=== PATIENT | female | born 1970 | race Caucasian/White ===

== ENCOUNTER → 2020-04-18 | Outpatient (CLI) | payer OTHER | LOC: WOUNDCARE 13:11 | PROVIDERS: ATTEND Surgery | DX: I87.332 Chronic venous hypertension (idiopathic) with ulcer and inflammation of left lower extremity (principal); E11.622 Type 2 diabetes mellitus with other skin ulcer; L95.8 Other vasculitis limited to the skin; I89.0 Lymphedema, not elsewhere classified; I50.9 Heart failure, unspecified; L97.322 Non-pressure chronic ulcer of left ankle with fat layer exposed; L97.222 Non-pressure chronic ulcer of left calf with fat layer exposed | CPT/HCPCS: 99202 ==

== ENCOUNTER → 2020-04-25 | Outpatient (CLI) | payer OTHER | LOC: WOUNDCARE 09:20 | PROVIDERS: ATTEND Surgery | DX: L97.222 Non-pressure chronic ulcer of left calf with fat layer exposed (principal); L97.322 Non-pressure chronic ulcer of left ankle with fat layer exposed; I87.332 Chronic venous hypertension (idiopathic) with ulcer and inflammation of left lower extremity; E11.622 Type 2 diabetes mellitus with other skin ulcer; L95.8 Other vasculitis limited to the skin; I89.0 Lymphedema, not elsewhere classified; I50.9 Heart failure, unspecified; E11.52 Type 2 diabetes mellitus with diabetic peripheral angiopathy with gangrene | CPT/HCPCS: 99213 ==

== ENCOUNTER → 2020-05-02 | Outpatient (CLI) | payer OTHER | LOC: WOUNDCARE 13:11 | PROVIDERS: ATTEND Surgery | DX: I87.332 Chronic venous hypertension (idiopathic) with ulcer and inflammation of left lower extremity (principal); E11.622 Type 2 diabetes mellitus with other skin ulcer; L95.8 Other vasculitis limited to the skin; I89.0 Lymphedema, not elsewhere classified; I50.9 Heart failure, unspecified; L97.222 Non-pressure chronic ulcer of left calf with fat layer exposed; L97.212 Non-pressure chronic ulcer of right calf with fat layer exposed; I96 Gangrene, not elsewhere classified | CPT/HCPCS: 11042; G0463 ==

== ENCOUNTER → 2020-05-09 | Outpatient (CLI) | payer OTHER | LOC: WOUNDCARE 08:18 | PROVIDERS: ATTEND Surgery | DX: I87.332 Chronic venous hypertension (idiopathic) with ulcer and inflammation of left lower extremity (principal); L97.212 Non-pressure chronic ulcer of right calf with fat layer exposed; L97.222 Non-pressure chronic ulcer of left calf with fat layer exposed; E11.622 Type 2 diabetes mellitus with other skin ulcer; I89.0 Lymphedema, not elsewhere classified; I96 Gangrene, not elsewhere classified | CPT/HCPCS: 99213 ==

== ENCOUNTER → 2020-05-25 | Outpatient (CLI) | payer OTHER | LOC: WOUNDCARE 08:12 | PROVIDERS: ATTEND Orthopaedic Surgery Hand Surgery | DX: I87.332 Chronic venous hypertension (idiopathic) with ulcer and inflammation of left lower extremity (principal); I96 Gangrene, not elsewhere classified; I89.0 Lymphedema, not elsewhere classified; E11.622 Type 2 diabetes mellitus with other skin ulcer; L97.212 Non-pressure chronic ulcer of right calf with fat layer exposed; L97.222 Non-pressure chronic ulcer of left calf with fat layer exposed; M79.662 Pain in left lower leg | CPT/HCPCS: 99213 ==

== ENCOUNTER → 2020-05-30 | Outpatient (CLI) | payer OTHER | LOC: WOUNDCARE 09:49 | PROVIDERS: ATTEND Surgery | DX: I87.332 Chronic venous hypertension (idiopathic) with ulcer and inflammation of left lower extremity (principal); I96 Gangrene, not elsewhere classified; L97.212 Non-pressure chronic ulcer of right calf with fat layer exposed; L97.222 Non-pressure chronic ulcer of left calf with fat layer exposed; E11.622 Type 2 diabetes mellitus with other skin ulcer; I89.0 Lymphedema, not elsewhere classified; M79.662 Pain in left lower leg | CPT/HCPCS: 11042; G0463 ==

== ENCOUNTER → 2020-06-06 | Outpatient (CLI) | payer OTHER | LOC: WOUNDCARE 09:41 | PROVIDERS: ATTEND Orthopaedic Surgery Hand Surgery | DX: I87.332 Chronic venous hypertension (idiopathic) with ulcer and inflammation of left lower extremity (principal); I96 Gangrene, not elsewhere classified; I89.0 Lymphedema, not elsewhere classified; L97.222 Non-pressure chronic ulcer of left calf with fat layer exposed; L97.322 Non-pressure chronic ulcer of left ankle with fat layer exposed; E11.622 Type 2 diabetes mellitus with other skin ulcer; M79.661 Pain in right lower leg | CPT/HCPCS: 11042; G0463 ==

== ENCOUNTER → 2020-06-13 | Outpatient (CLI) | payer OTHER | LOC: WOUNDCARE 09:39 | PROVIDERS: ATTEND Surgery | DX: E11.52 Type 2 diabetes mellitus with diabetic peripheral angiopathy with gangrene (principal); E11.622 Type 2 diabetes mellitus with other skin ulcer; I96 Gangrene, not elsewhere classified; I87.332 Chronic venous hypertension (idiopathic) with ulcer and inflammation of left lower extremity; L97.222 Non-pressure chronic ulcer of left calf with fat layer exposed; L97.322 Non-pressure chronic ulcer of left ankle with fat layer exposed | CPT/HCPCS: 11042; G0463 ==

== ENCOUNTER → 2020-06-20 | Outpatient (CLI) | payer OTHER | LOC: WOUNDCARE 09:47 | PROVIDERS: ATTEND Surgery | DX: I87.332 Chronic venous hypertension (idiopathic) with ulcer and inflammation of left lower extremity (principal); I96 Gangrene, not elsewhere classified; L97.222 Non-pressure chronic ulcer of left calf with fat layer exposed; L97.322 Non-pressure chronic ulcer of left ankle with fat layer exposed; E11.622 Type 2 diabetes mellitus with other skin ulcer | CPT/HCPCS: 11042; G0463 ==

== ENCOUNTER → 2020-06-27 | Outpatient (CLI) | payer OTHER | LOC: WOUNDCARE 09:32 | PROVIDERS: ATTEND Surgery | DX: I87.332 Chronic venous hypertension (idiopathic) with ulcer and inflammation of left lower extremity (principal); L97.222 Non-pressure chronic ulcer of left calf with fat layer exposed; L97.322 Non-pressure chronic ulcer of left ankle with fat layer exposed; E11.622 Type 2 diabetes mellitus with other skin ulcer; I96 Gangrene, not elsewhere classified | CPT/HCPCS: 11042; G0463 ==

== ENCOUNTER → 2020-07-04 | Outpatient (CLI) | payer OTHER | LOC: WOUNDCARE 09:40 | PROVIDERS: ATTEND Surgery | DX: I87.332 Chronic venous hypertension (idiopathic) with ulcer and inflammation of left lower extremity (principal); L97.222 Non-pressure chronic ulcer of left calf with fat layer exposed; L97.322 Non-pressure chronic ulcer of left ankle with fat layer exposed; E11.622 Type 2 diabetes mellitus with other skin ulcer; I96 Gangrene, not elsewhere classified | CPT/HCPCS: 11042; A4649; G0463 ==

== ENCOUNTER → 2020-07-11 | Outpatient (CLI) | payer OTHER | LOC: WOUNDCARE 09:42 | PROVIDERS: ATTEND Surgery | DX: I87.332 Chronic venous hypertension (idiopathic) with ulcer and inflammation of left lower extremity (principal); L97.222 Non-pressure chronic ulcer of left calf with fat layer exposed; L97.322 Non-pressure chronic ulcer of left ankle with fat layer exposed; E11.622 Type 2 diabetes mellitus with other skin ulcer; E11.52 Type 2 diabetes mellitus with diabetic peripheral angiopathy with gangrene | CPT/HCPCS: 29581 ==

== ENCOUNTER → 2020-07-18 | Outpatient (CLI) | payer OTHER | LOC: WOUNDCARE 09:45 | PROVIDERS: ATTEND Surgery | DX: I87.332 Chronic venous hypertension (idiopathic) with ulcer and inflammation of left lower extremity (principal); I96 Gangrene, not elsewhere classified; L97.222 Non-pressure chronic ulcer of left calf with fat layer exposed; L97.321 Non-pressure chronic ulcer of left ankle limited to breakdown of skin; E11.622 Type 2 diabetes mellitus with other skin ulcer | CPT/HCPCS: 11042; 97597; G0463 ==

== ENCOUNTER → 2020-07-25 | Outpatient (CLI) | payer OTHER | LOC: WOUNDCARE 08:29 | PROVIDERS: ATTEND Surgery | DX: S81.802A Unspecified open wound, left lower leg, initial encounter (principal); S91.002A Unspecified open wound, left ankle, initial encounter | CPT/HCPCS: 29581; G0463 ==

== ENCOUNTER → 2020-08-01 | Outpatient (CLI) | payer OTHER | LOC: WOUNDCARE 09:35 | PROVIDERS: ATTEND Surgery | DX: I87.332 Chronic venous hypertension (idiopathic) with ulcer and inflammation of left lower extremity (principal); L97.222 Non-pressure chronic ulcer of left calf with fat layer exposed; L97.321 Non-pressure chronic ulcer of left ankle limited to breakdown of skin; E11.622 Type 2 diabetes mellitus with other skin ulcer | CPT/HCPCS: 99213 ==